=== PATIENT | male | born 1960 | race Caucasian/White ===

== ENCOUNTER → 2017-08-20 | Outpatient (CLI) | payer OTHER ==
--- NOTE | 2017-08-20 10:12 | RAD ---
TWO VIEWS CHEST: History: Dyspnea. FINDINGS: Two views of the chest show normal sized cardiomediastinal silhouette. There is no evidence of consol idation, mass, or pleural effusion. The bones are unremarkable. IMPRESSION: No evidence of acute cardiopulmonary disease. POS: [facility]
== END ==
LOC: RAD 13:20
PROVIDERS: ATTEND Internal Medicine Critical Care Medicine
DX: R06.00 Dyspnea, unspecified (principal)
CPT/HCPCS: 71046

== ENCOUNTER 2019-12-21 12:01 | Outpatient (CLI) | payer OTHER ==
--- NOTE | 2019-12-21 15:12 | ULT ---
BILATERAL RENAL ULTRASOUND: Date: 12/21/2019 HISTORY: Renal insufficiency. FINDINGS: The right kidney measures 11.2 cm in length and the left kidney measures 12.7 cm in length. No hydron ephrosis seen on either side. There is a 1.2 cm cyst in the right kidney and a 3.5 cm cyst in the lef t kidney. A 2.0 cm solid mass is seen in the upper right kidney. No hydronephrosis noted on either si de. The urinary bladder has a volume of 220 mL and is grossly unremarkable. The spleen is mildly enla rged, measuring 14.1 cm. There is a 5.0 x 4.0 mm nonshadowing echogenic focus in the left mid renal c ortex which may either represent a calculus or a vascular calcification. IMPRESSION: 1. Solid 2.0 cm right renal mass. Further evaluation with CT scan (with and without IV contrast) usi ng the renal mass protocol is recommended. 2. Bilateral renal cysts. 3. Mild splenomegaly. CODE T.
== END 2019-12-21 12:02 | disposition home or self-care (01) ==
LOC: BICULT 12:01
PROVIDERS: ATTEND Urology
DX: N28.9 Disorder of kidney and ureter, unspecified (principal); N28.1 Cyst of kidney, acquired; R16.1 Splenomegaly, not elsewhere classified; N28.89 Other specified disorders of kidney and ureter
CPT/HCPCS: 76770

== ENCOUNTER 2019-12-28 14:02 | Outpatient (CLI) | payer OTHER ==
[~2019-12-28 14:02] MED LIST: Iopamidol 370 76% 100 ML VIAL ONE
--- NOTE | 2019-12-28 15:29 | CT ---
CT abdomen without and with IV contrast HISTORY: Right renal mass. FINDINGS: The lung bases are clear. There is a 0.3 cm calculus within a nondilated calyx at the super ior pole left kidney. No stones on the right. Each renal collecting system is decompressed. No filling defects apparent within the renal collecting systems or proximal ureters on the delayed image s. The pelvis was not imaged. Projecting laterally from the superior pole of the right kidney, in the area of mass on recent sonogr am, and ill-defined, heterogeneous low density enhancing mass measures up to 1.9 cm greatest diameter on the current coronal images and correlates with the sonographic abnormality. Cysts arise from the cortex of each kidney, measuring up to 3.4 cm at the medial aspect of the midpor tion left kidney. Small hyperdense stones are present within the dependent portion of the gallbladder lumen. There is a small hiatal hernia and circumferential wall thickening of the partially visualized lower esophagus. IMPRESSION: Solid mass at the lateral margin of the superior pole right kidney. It has appeared since the 2017 ex am and is evidence of malignancy. Renal cysts. Small nonobstructing left superior pole renal calculus. Small hiatal hernia. Cholelithiasis.
== END 2019-12-28 14:03 | disposition home or self-care (01) ==
LOC: BICCT 14:02
PROVIDERS: ATTEND Urology
DX: N28.89 Other specified disorders of kidney and ureter (principal); N28.1 Cyst of kidney, acquired; N20.0 Calculus of kidney; K80.20 Calculus of gallbladder without cholecystitis without obstruction; K44.9 Diaphragmatic hernia without obstruction or gangrene
CPT/HCPCS: 74170; Q9967

== ENCOUNTER 2020-05-17 14:31 | Outpatient (CLI) | payer BC, OTHER ==
[2020-05-18 12:56] LABS: SARS-CoV-2 MS2 Positive; SARS-CoV-2 N Gene Negative; SARS-CoV-2 S Gene Negative; SARS-CoV-2 by NAA Not Detected (NotDetected); SARS-CoV-2 orf1ab Negative
== END 2020-05-17 14:32 | disposition home or self-care (01) ==
LOC: LABBT 14:31
PROVIDERS: ATTEND Urology
DX: C61 Malignant neoplasm of prostate (principal); R74.8 Abnormal levels of other serum enzymes; N20.0 Calculus of kidney; I10 Essential (primary) hypertension; E83.42 Hypomagnesemia; N28.9 Disorder of kidney and ureter, unspecified; R35.0 Frequency of micturition; N28.89 Other specified disorders of kidney and ureter
CPT/HCPCS: 87635; U0003

== ENCOUNTER 2020-05-18 14:00 | Inpatient (IN) | payer BC, OTHER ==
[2020-05-19 09:42] VITALS: BMI 31.3
[2020-05-22] MEDS ORDERED: Levofloxacin 500 mg/D5W 100 ml Premix Bag ONE (06:30)
[2020-05-22] MEDS ORDERED: Gentamicin 80 MG/2 ML VIAL ONE (06:34)
[2020-05-22] MEDS ORDERED: Methylene Blue 50 MG/10 ML AMPUL ONE (06:34)
[2020-05-22] MEDS ORDERED: Iothalamate Meglumine 60% 50 ML VIAL FS ONE (06:36)
[2020-05-22] MEDS ORDERED: HYDROmorphone 2 MG/ML VIAL ONE (06:45)
[2020-05-22] MEDS ORDERED: Fentanyl 100 MCG/2 ML VIAL ONE ×2 (06:45→07:40)
[2020-05-22] MEDS ORDERED: Phenylephrine 10 MG/ML VIAL ONE (06:46)
[2020-05-22] MEDS ORDERED: Midazolam HCl 2 mg/2 ml Vial ONE (07:11)
[2020-05-22] MEDS ORDERED: Bupivacaine 0.25% 10 ML VIAL EPIDURAL PRN (07:30)
[2020-05-22] MEDS ORDERED: Naloxone HCl 0.4 mg/ml Vial IVP PRN (07:30)
[2020-05-22] MEDS ORDERED: HYDROcodone/Acetaminophen 5/325 mg Tablet PO PRN ×2 (07:30)
[2020-05-22] MEDS ORDERED: diphenhydrAMINE 50 MG/ML VIAL IVP PRN (07:30)
[2020-05-22] MEDS ORDERED: Promethazine HCl 25 MG SUPP PR PRN (07:30)
[2020-05-22] MEDS ORDERED: Zolpidem Tartrate 5 MG TAB PO PRN (07:30)
[2020-05-22] MEDS ORDERED: Promethazine HCl 25 MG/ML VIAL IM PRN ×2 (07:30→11:16)
[2020-05-22] MEDS ORDERED: traMADol HCl 50 MG TAB PO PRN ×2 (07:30)
[2020-05-22] MEDS ORDERED: Hydrocerin (Eucerin) Cream 120 gm Jar TOP PRN (07:30)
[2020-05-22] MEDS ORDERED: Naloxone HCl 0.4 mg/ml Vial IV PRN (07:30)
[2020-05-22] MEDS ORDERED: diphenhydrAMINE 25 MG CAP PO PRN (07:30)
[2020-05-22] MEDS ORDERED: Ondansetron PF 4 MG/2 ML Vial IVP PRN (07:30)
[2020-05-22] MEDS ORDERED: diphenhydrAMINE 50 MG/ML VIAL IM PRN (07:30)
[2020-05-22] MEDS ORDERED: Bupivacaine/Epinephrine 0.25% 30 ML VIAL ONE (07:38)
[2020-05-22] MEDS ORDERED: Famotidine/PF 20 mg/2ml Vial ONE (07:38)
[2020-05-22] MEDS ORDERED: Oxybutynin 5 MG TAB PO PRN (11:08)
[2020-05-22] MEDS ORDERED: Mag-Al 1200 mg/1200 mg/30 ML UDCUP PO PRN (11:08)
[2020-05-22] MEDS ORDERED: hydrALAZINE 20 MG/ML VIAL SLOW IVP PRN ×2 (11:08)
[2020-05-22] MEDS ORDERED: HYDROmorphone 2 MG/ML VIAL SLOW IVP PRN (11:16)
[2020-05-22] MEDS ORDERED: Meperidine HCl/PF 25 MG/ML VIAL SLOW IVP PRN (11:16)
[2020-05-22] MEDS ORDERED: Promethazine HCl 25 MG/ML VIAL SLOW IVP PRN (11:16)
[2020-05-22] MEDS ORDERED: Lidocaine 1% PF 5 ML VIAL ONE (11:28)
[2020-05-22] MEDS ORDERED: PHENYLEPHRINE-NS 100 MCG/ML 10 ML SYRINGE ONE (11:28)
[2020-05-22] MEDS ORDERED: Ondansetron PF 4 MG/2 ML Vial ONE (11:28)
[2020-05-22] MEDS ORDERED: EPHEDRINE 25 MG/5 ML SYRINGE ONE (11:28)
[2020-05-22] MEDS ORDERED: Lidocaine 1.5% w/Epi 1:200K 30 ML VIAL (Epid Use) ONE (11:28)
[2020-05-22] MEDS ORDERED: PROPOFOL 200 MG/20 ML VIAL ONE (11:28)
[2020-05-22] MEDS ORDERED: Dexamethasone 20 MG/5 ML VIAL ONE (11:28)
[2020-05-22] MEDS ORDERED: Glycopyrrolate 0.2 MG/ML 5 ML SYRINGE ONE (11:28)
[2020-05-22] MEDS ORDERED: Rocuronium Bromide 10 MG/ML (10ML VIAL) ONE (11:28)
[2020-05-22] MEDS: cefTRIAXone\\ROCEPHIN 1 GM in Sodium Chloride 0.9% 100 ML IVPB SCH (12:42)
[2020-05-22] MEDS: Sodium Chloride 0.9% 1,000 ML IV SCH ×2 (12:42→20:01)
[2020-05-22 13:21] LABS: #Lymphocytes 0.5 thou/uL (1.20-3.40); #Monocytes 0.9 thou/uL (0.11-0.59); #Neutrophils 17.6 thou/uL (1.40-6.50); %Basophils 0.1 % (0.0-1.0); %Eosinophils 0.2 % (0.0-10.0); %Lymphocytes 2.6 % (21.0-51.0); %Monocytes 4.6 % (0.0-10.0); %Neutrophils 92.5 % (42.0-75.0); Hemoglobin 15.6 g/dL (14.0-18.0); Mean Corpuscular HGB CONC 34.2 g/dL (32.0-36.0); Mean Corpuscular Hemoglobin 32.6 pg (27.0-31.0); Mean Corpuscular Volume 95.4 fL (78.0-98.0); Mean Platelet Volume 7.6 fL (7.4-10.4); Platelet Count 235 thou/uL (130-400); RBC Distribution Width 12.4 % (11.5-14.5); Red Blood Cell (RBC) Count 4.79 mill/uL (4.70-6.10)
[2020-05-22 13:38] LABS: Anion Gap 14 mmol/L (10-20); BUN (Urea Nitrogen) 39 mg/dL (8.4-25.7); Calc. Creatinine Clearance 62 mL/min (70-130); Carbon Dioxide 22 mmol/L (22-29); Chloride 104 mmol/L (98-107); Estimated GFR-MDRD 35; Glucose 150 mg/dL (70-105); Potassium 4.2 mmol/L (3.5-5.1); Sodium 136 mmol/L (136-145)
[2020-05-22] MEDS: Docusate 100 MG CAP PO SCH (20:00)
[2020-05-22] MEDS: Atorvastatin Calcium 20 MG TAB PO SCH (20:01)
[2020-05-22] MEDS: fentaNYL Citrate/PF 500 MCG, Bupivacaine 10 ML in Sodium Chloride 0.9% 80 ML EPIDURAL SCH (23:52)
[2020-05-23] MEDS: Sodium Chloride 0.9% 1,000 ML IV SCH ×3 (04:23→11:20)
[2020-05-23 05:05] LABS: #Lymphocytes 0.9 thou/uL (1.20-3.40); #Monocytes 1.8 thou/uL (0.11-0.59); #Neutrophils 14.8 thou/uL (1.40-6.50); %Eosinophils 0.2 % (0.0-10.0); %Lymphocytes 5.3 % (21.0-51.0); %Monocytes 10.1 % (0.0-10.0); %Neutrophils 84.3 % (42.0-75.0); Mean Corpuscular HGB CONC 34.4 g/dL (32.0-36.0); Mean Corpuscular Hemoglobin 32.7 pg (27.0-31.0); Mean Platelet Volume 7.6 fL (7.4-10.4); Platelet Count 226 thou/uL (130-400); RBC Distribution Width 12.5 % (11.5-14.5); Red Blood Cell (RBC) Count 4.58 mill/uL (4.70-6.10); White Blood Cell (WBC) Count 17.5 thou/uL (4.8-10.8)
[2020-05-23 05:18] LABS: Anion Gap 15 mmol/L (10-20); BUN (Urea Nitrogen) 34 mg/dL (8.4-25.7); Calc. Creatinine Clearance 61 mL/min (70-130); Calcium 8.9 mg/dL (7.8-10.44); Carbon Dioxide 21 mmol/L (22-29); Chloride 102 mmol/L (98-107); Estimated GFR-MDRD 34; Glucose 127 mg/dL (70-105); Sodium 134 mmol/L (136-145)
[2020-05-23] MEDS: Docusate 100 MG CAP PO SCH ×2 (08:20→21:20)
[2020-05-23] MEDS: Lisinopril 20 MG TAB PO SCH (08:20)
[2020-05-23] MEDS: Atenolol 50 MG TAB PO SCH (08:20)
[2020-05-23] MEDS: Chlorthalidone 25 MG TAB PO SCH (08:21)
--- NOTE | 2020-05-23 08:40 | OP ---
DATE OF PROCEDURE: 05/22/2020 PREOPERATIVE DIAGNOSES: 1. Right mesophytic renal mass measuring 1.8 x 1.6 x 1.9 cm. 2. Chronic renal insufficiency. 3. History of renal lithiasis, left 3 mm nonobstructing renal calculi. 4. History of prostate cancer, in remission, status post robotic prostatectomy. 5. Mild bladder neck contracture, nonobstructing. ANESTHESIA: General/epidural. LICENSED INSURANCE AGENT: Ollie Doyle MD PROCEDURES PERFORMED: 1. Right open partial nephrectomy. 2. Cystoscopy. 3. Dilation of bladder neck with Lucho dilators. 4. 16-Israeli [place] tip Kumar catheter placement over guidewire. INTRAOPERATIVE FINDINGS: 1. Mild bladder neck contracture, nonobstructing about 14-Israeli caliber. 2. Right mesophytic renal mass as previous. INDICATIONS FOR PROCEDURE AND HISTORY: Mr. Santana is a pleasant 59-year-old male, whom I know as I treated his prostate cancer with robotic-assisted laparoscopic radical prostatectomy with PSA stable. He has no significant postprostatectomy incontinence, doing well. On surveillance for renal insufficiency, he was found to have an incidental renal mass and presents today for partial open nephrectomy. Risks and complications of the procedure were reviewed with him in detail including, but not limited to, bleeding, pain, infection, worsening renal insufficiency, possible hemodialysis, bleeding, pain, infection, possible pseudoaneurysm warranting subsequent treatment including embolization, possible total nephrectomy conversion. All questions were answered to his satisfaction and desired to proceed. Alternative options including surveillance imaging, versus laparoscopic partial nephrectomy, total nephrectomy were reviewed with him in detail and desired to proceed with open partial nephrectomy. DESCRIPTION OF PROCEDURE: After an informed consent was signed, the patient was taken to the operating room. The patient was placed in supine position, and general epidural anesthesia and an OG tube were placed by Anesthesia. At this time, a flexible cystoscopy was performed. The genital area was formally prepped and draped as I wanted to place the catheter over visual guidance. Flexible cystoscope was passed, which demonstrated he has changes consistent with radical prostatectomy. The bladder neck was patent, however, the caliber was about 14-Israeli and a 0.35 Super Stiff wire was placed into the bladder and I was able to negotiate the flexible cystoscope. However, it required some manipulation as it was tight with the cystoscope, flexible. I was able to maneuver it into the bladder, which demonstrated no evidence of bladder trabeculation or stones, and UOs were well away from the bladder neck anastomosis. At this time, with a 0.35 Super Stiff and a wire, I did dilate his bladder neck caliber to 22-Israeli with ease and subsequently a 16-Israeli [place] tip Kumar catheter was passed without difficulty and 10 mL insufflated. Subsequently, his abdomen area was formally prepped and draped. We approached the right kidney with a subcostal incision from the tip of the 11th rib to the midline. Subcutaneous fascia was opened to the limits of skin incision. A falciform ligament was identified as we entered the peritoneum and ligatured and divided. The peritoneal contents were then retracted with the colon retracted medially. We incised the white line of Toldt after appropriate Bookwalter retractors were placed. With the colon retracted from the white line of Toldt to hepatic flexure, we were able to visualize the duodenum and the vena cava. The duodenum was Kocherized allowing us to visualize the vena cava and renal hilum. The right ureter was isolated with blunt and sharp dissection and isolated using a vessel loop. Subsequently, we mobilized the kidney posteriorly and superiorly. He had significant amount of Gerota's fat, this was dissected off the renal capsule anteriorly and as such, we were able to see a subtle mesophytic renal mass in the right upper anterior kidney consistent with the CT scan. Intraoperative ultrasound was performed confirming the solid mass in this region consistent with the CT scan. We sharply dissected and isolated the renal artery and vein separately. Cold ischemia was placed with ice placed into the abdominal wound. A total of 27 minutes of cold ischemia time was utilized, in which we excised the renal mass. We first scored the area with the cautery and subsequently using back of 11-blade knife, we bluntly and sharply divided the renal mass off the main parenchyma. Margins of excision looked like there was healthy tissue at the margin of resection. No tumor was involved in the tumor bed. We then performed renorrhaphy using 2-[address]-1 needle with pledgets performed in a vertical mattress fashion. With all our sutures to repair the renorrhaphy, the kidney was taken off clamp. No significant bleeding was appreciated. We had a nice stump of Gerota's fat, that we mobilized, that allowed us to cover our renorrhaphy after FloSeal and Surgicel were placed on the renorrhaphy suture line. A #10 flat ZARI was placed in the right retroperitoneal space and a stab incision was made to bring the drain and sutured to skin using 4-0 nylon. The fascia was closed with 0 PDS in a running fashion in 2 layers and skin was closed with skin rome, and he tolerated the procedure well and transported to the recovery room in stable condition. Job ID: [id number] [facility]
--- NOTE | 2020-05-23 11:02 | PRG ---
DATE OF SERVICE: 05/23/2020 SUBJECTIVE: The patient states that he had a good night, however, difficulty sleeping with activity in the hospital. Vital signs are stable, afebrile. He had mild nausea, however, no emesis, tolerating clears. OBJECTIVE: VITAL SIGNS: Stable. I's and O's 2130 in, 2450 out, negative 460 mL. ZARI output 140 mL of serosanguinous fluid. GENERAL: The patient is in no acute distress. HEART: Regular rate. LUNGS: Clear. ABDOMEN: Soft. Bowel sounds are diminished. No rigidity. No rebound. Incision is clean, dry, and intact. EXTREMITIES: No cyanosis, clubbing, or edema. No calf tenderness appreciated. PERTINENT LABORATORY DATA: White count 17, hemoglobin stable at 15, platelets 226. Renal function; creatinine is 2.0, blood sugar 127. Pathology is pending. IMPRESSION AND PLAN: Mr. Santana is a pleasant 59-year-old male, status post right partial nephrectomy; dilation of bladder neck; history of prostate cancer, in remission; renal mass, pathology pending; history of chronic renal insufficiency. I will keep the patient on clear liquids for now as his bowel sounds are somewhat diminished. Aggressive out of bed activity, walking program noted. Anticoagulation contraindicated due to recent partial nephrectomy. Continue epidural and titrate. We will increase his IV fluids to 150 mL/h. Job ID: [id number] [facility]
[2020-05-23] MEDS: cefTRIAXone\\ROCEPHIN 1 GM in Sodium Chloride 0.9% 100 ML IVPB SCH (11:18)
[2020-05-23] MEDS: fentaNYL Citrate/PF 500 MCG, Bupivacaine 10 ML in Sodium Chloride 0.9% 80 ML EPIDURAL SCH (12:33)
[2020-05-23] MEDS: Atorvastatin Calcium 20 MG TAB PO SCH (21:20)
[2020-05-24] MEDS: Sodium Chloride 0.9% 1,000 ML IV SCH ×3 (00:23→10:46)
[2020-05-24] MEDS: fentaNYL Citrate/PF 500 MCG, Bupivacaine 10 ML in Sodium Chloride 0.9% 80 ML EPIDURAL SCH ×2 (01:10→10:06)
[2020-05-24 05:55] LABS: #Eosinphils 0.2 thou/uL (0.0-0.7); #Lymphocytes 0.9 thou/uL (1.20-3.40); #Monocytes 1.3 thou/uL (0.11-0.59); #Neutrophils 11.9 thou/uL (1.40-6.50); %Basophils 0.1 % (0.0-1.0); %Eosinophils 1.1 % (0.0-10.0); %Lymphocytes 6.2 % (21.0-51.0); %Neutrophils 83.6 % (42.0-75.0); Hemoglobin 13.5 g/dL (14.0-18.0); Mean Corpuscular HGB CONC 35.1 g/dL (32.0-36.0); Mean Corpuscular Hemoglobin 33.4 pg (27.0-31.0); Mean Corpuscular Volume 95.1 fL (78.0-98.0); Mean Platelet Volume 8.1 fL (7.4-10.4); Platelet Count 180 thou/uL (130-400); RBC Distribution Width 12.6 % (11.5-14.5); Red Blood Cell (RBC) Count 4.05 mill/uL (4.70-6.10); White Blood Cell (WBC) Count 14.3 thou/uL (4.8-10.8)
[2020-05-24 06:22] LABS: Anion Gap 13 mmol/L (10-20); BUN (Urea Nitrogen) 28 mg/dL (8.4-25.7); Calc. Creatinine Clearance 72 mL/min (70-130); Calcium 9.2 mg/dL (7.8-10.44); Carbon Dioxide 25 mmol/L (22-29); Chloride 101 mmol/L (98-107); Estimated GFR-MDRD 41; Glucose 108 mg/dL (70-105); Sodium 135 mmol/L (136-145)
[2020-05-24] MEDS: Docusate 100 MG CAP PO SCH ×2 (08:56→20:20)
[2020-05-24] MEDS: Lisinopril 20 MG TAB PO SCH (08:56)
[2020-05-24] MEDS: Atenolol 50 MG TAB PO SCH (08:56)
[2020-05-24] MEDS: Chlorthalidone 25 MG TAB PO SCH (08:56)
--- NOTE | 2020-05-24 08:59 | PRG ---
DATE OF SERVICE: 05/24/2020 SUBJECTIVE: The patient feeling well, states that he is hungry, however has not yet passed flatus. He has been tolerating clears and has been taking significant amount of oral fluids. He denies chest pain, shortness of breath, or lower extremity pain. OBJECTIVE: VITAL SIGNS: Stable at 98, 85, 16, 93, 137/94. I's and O's are 5490 in, 4325 of urine. He is positive 1 L ZARI output. ZARI output is 70 over 24 hours serosanguineous incision. ABDOMEN: Soft, nontender, nondistended. Bowel sounds are somewhat diminished, but present. The incision is clean, dry, and intact. No rigidity. No rebound. EXTREMITIES: No cyanosis, clubbing, or edema. HEART: Regular rate. LUNGS: Clear. PERTINENT LABORATORY DATA: White count 14, hemoglobin 13, platelet 180. Renal function beginning to trend towards his baseline to 1.7. Pathology reviewed demonstrating pathologic T1a renal cell carcinoma, margin negative disease and pathologic T1 renal cell carcinoma grade 2, margin negative. IMPRESSION AND PLAN: 1. Mr. Santana is a 59-year-old male, postop day #2 status post right open partial nephrectomy, dilation of bladder neck. 2. History of prostate cancer, in remission. 3. History of chronic renal insufficiency. advance his diet, with full liquids, tpatient is to be aggressively out of bed. Hep-Lock IV. Anticipate the patient will stay in-house until he is passing flatus and trial of regular diet. Titrate epidural down per Pain Service. Job ID: [id number] [facility]
[2020-05-24] MEDS ORDERED: fentaNYL Citrate/PF 500 MCG, Bupivacaine 10 ML in Sodium Chloride 0.9% 80 ML EPIDURAL SCH (10:45)
[2020-05-24] MEDS: cefTRIAXone\\ROCEPHIN 1 GM in Sodium Chloride 0.9% 100 ML IVPB SCH (12:05)
[2020-05-24] MEDS: Colchicine 0.3 MG TAB PO SCH (18:30)
[2020-05-24] MEDS: Atorvastatin Calcium 20 MG TAB PO SCH (20:20)
[2020-05-25 05:39] LABS: #Eosinphils 0.2 thou/uL (0.0-0.7); #Lymphocytes 1.1 thou/uL (1.20-3.40); #Monocytes 1.4 thou/uL (0.11-0.59); #Neutrophils 10.2 thou/uL (1.40-6.50); %Basophils 0.1 % (0.0-1.0); %Eosinophils 1.5 % (0.0-10.0); %Lymphocytes 8.4 % (21.0-51.0); %Monocytes 10.8 % (0.0-10.0); %Neutrophils 79.3 % (42.0-75.0); Hemoglobin 13.1 g/dL (14.0-18.0); Mean Corpuscular Hemoglobin 32.9 pg (27.0-31.0); Mean Corpuscular Volume 93.9 fL (78.0-98.0); Mean Platelet Volume 7.8 fL (7.4-10.4); Platelet Count 170 thou/uL (130-400); RBC Distribution Width 12.5 % (11.5-14.5); Red Blood Cell (RBC) Count 3.98 mill/uL (4.70-6.10); White Blood Cell (WBC) Count 12.9 thou/uL (4.8-10.8)
[2020-05-25 05:59] LABS: Anion Gap 13 mmol/L (10-20); BUN (Urea Nitrogen) 25 mg/dL (8.4-25.7); Calc. Creatinine Clearance 79 mL/min (70-130); Calcium 9.2 mg/dL (7.8-10.44); Carbon Dioxide 24 mmol/L (22-29); Chloride 99 mmol/L (98-107); Estimated GFR-MDRD 46; Glucose 110 mg/dL (70-105); Potassium 3.7 mmol/L (3.5-5.1); Sodium 132 mmol/L (136-145)
--- NOTE | 2020-05-25 08:16 | PRG ---
DATE OF SERVICE: 05/25/2020 SUBJECTIVE: The patient feeling well. His main complaint is flare of his gout, which I did start colchicine yesterday, renal adjusted dose. OBJECTIVE: VITAL SIGNS: Stable. He is afebrile. I's and O's; 1720 in, urine output 300. ZARI output is 65 mL. Serous pink-tinged GENERAL: The patient is in no acute distress. HEART: Regular rate. LUNGS: Clear. ABDOMEN: Incision is clean, dry, and intact. ZARI removed at bedside. Urine output is clear. EXTREMITIES: No cyanosis, clubbing, or edema. He does have some mild ankle swelling with his gout flare. There is no calf tenderness of concern. PERTINENT LABORATORY DATA: White count 12, hemoglobin stable at 13.1, and platelet 170. Renal function has returned to his baseline at 1.56. ZARI creatinine 1.5 consistent with serum not leak Pathology reviewed with the patient demonstrating pathologic T1 grade 2 renal cell carcinoma margin negative disease. Discontinue epidural. I will monitor the patient for tolerability with p.o. pain medication. The patient would like to go home today, we will monitor him this morning off his epidural. If his pain is adequately controlled, anticipate discharge this afternoon. Job ID: [id number] [facility]
[2020-05-25] MEDS: Atenolol 50 MG TAB PO SCH (08:57)
[2020-05-25] MEDS: Lisinopril 20 MG TAB PO SCH (08:57)
[2020-05-25] MEDS: Docusate 100 MG CAP PO SCH (08:58)
[2020-05-25] MEDS: Chlorthalidone 25 MG TAB PO SCH (08:58)
[2020-05-25] MEDS: cefTRIAXone\\ROCEPHIN 1 GM in Sodium Chloride 0.9% 100 ML IVPB SCH (12:14)
[2020-05-25 12:17] VITALS: BP 115/78; TEMP 98.6
[2020-05-25] MEDS: Colchicine 0.3 MG TAB PO SCH (12:20)
--- NOTE | 2020-05-25 15:10 | PQF ---
CLINICAL DOCUMENTATION CLARIFICATION FORM: Dear Dr. SEVERO MCDONALD Date: 05-25-20 Please exercise your independent, professional judgment in responding to the clarification form. Clinical indicators are provided on the bottom of this form for your review. Please check appropriate box(es): [ ] Acute Renal Failure (ARF) / Acute Kidney Injury (JUDIE) [ ] Acute on Chronic Renal Failure please specify Stage of CKD (see below) [ x ] CKD without ARF/JUDIE please specify Stage of CKD [ ] Other diagnosis [ ] Unable to determine In addition, please specify: Present on Admission (POA): [ x ] Yes [ ] No [ ] Unable to determine For continuity of documentation, please document condition throughout progress notes and discharge summary. Thank You. To be completed by CDI/Coding staff for physician review: CLINICAL INDICATORS - SIGNS / SYMPTOMS / LABS / RESULTS AND LOCATION IN MR: GFR: 05-22-20: 35 05-23-20: 34 05-24-20: 41 05-25-20: 46 CREATININE: 05-22-20: 1.98 05-23-20: 2.00 05-24-20: 1.70 05-25-20: 1.56 BUN: 05-22-20: 39 05-23-20: 34 05-24-20: 28 OP NOTE 05-22-20: CHRONIC RENAL INSUFFICIENCY RISK FACTORS / RESULTS AND LOCATION IN MR: PN DR. MCDONALD 05-24-20: HX OF CHRONIC RENAL INSUFFICIENCY TREATMENTS / RESULTS AND LOCATION IN MR: MAR: 05-23-20: NS IVF MONITORING LABS 05-22-20 TO 05-25-20 National Kid[employer] Guidelines for CKD Staging Stage I Kidney damage with normal or increased GFR GFR > 90 Stage II Kidney damage with mildly decreased GFR GFR 60-89 Stage III Kidney damage with moderately decreased GFR GFR 30-59 Stage IV Kidney damage with severely decreased GFR GFR 16-29 Stage V Kidney failure GFR<15 ESRD End Stage Renal Disease On dialysis Acute Renal Failure/Acute Kidney Failure defined as: Increases in SCr by (>) 0.3 mg/dl within 48 hours OR- Increases in SCr by (>) 1.5 times baseline, known or presumed to have occurred within the prior 7 days OR- Urine volume < 0.5 ml/kg/hour for 6 hours (KDIGO supplement 2012 for RIFLE/JULIETA criteria) CDS Signature: Dorene Lange Phone #: [phone] Date: 05-25-20 This is a permanent part of the Medical Record [facility]
--- NOTE | 2020-05-26 01:02 | DIS ---
DATE OF ADMISSION: 05/22/2020 DATE OF DISCHARGE: 05/25/2020 ADMITTING DIAGNOSIS: Right renal mass. DISCHARGE DIAGNOSIS: Pathologic T1 renal cell carcinoma, margin-negative disease. PROCEDURE: Right open partial nephrectomy, dilation of bladder neck. BRIEF HOSPITAL COURSE: Mr. Santana is a pleasant 59-year-old male, well known to me, with history of prostate cancer, in remission, status post robotic prostatectomy. The patient presented subsequently on followup with renal insufficiency, renal ultrasound was obtained demonstrating no evidence of hydronephrosis, however, incidental renal mass concerning for occult renal cell carcinoma. He was fully informed regarding differential diagnosis, treatment options outlined, and desired to proceed with open right partial nephrectomy. He underwent surgery uneventfully, he was managed with epidural for pain management. His diet was advanced, which he has been tolerating, had bowel movements, passing flatus. His epidural was discontinued this morning and his pain is well controlled with oral pain medications. He did have a flare of his gout, I did provide a renal dose- adjusted colchicine, he cannot take NSAIDs due to history of baseline renal insufficiency, recent partial nephrectomy. His allopurinol was on hold during the hospital due to renal surgery and renal insufficiency. As his kidney function has now normalized to his baseline, his allopurinol is to be continued as an outpatient. DISCHARGE MEDICATIONS: From urologic perspective includes: 1. Greene 5/325, #30. 2. Colace p.r.n. His ZARI output demonstrated ZARI creatinine consistent with serum, and therefore was removed on day of discharge. DISCHARGE INSTRUCTIONS: No heavy lifting or strenuous activity over 10 pounds, he is discharged with indwelling Kumar catheter as he underwent concomitant dilation of his bladder neck. He will return to clinic next Friday for Kumar catheter removal. followup in chart, primary care appointment within the next few days advised. I did conference with Dr. Franklin, who will contact him to proceed with treatment of steroids due to acute gout flare. CONDITION: Stable. Job ID: [id number] [facility] [place]
--- NOTE | 2020-05-26 11:21 | PQF ---
CLINICAL DOCUMENTATION CLARIFICATION FORM: Dear : Cathie Phillips DO Date / Time: 05/26/2020 Please exercise your independent, professional judgment in responding to the clarification form. Clinical indicators are provided on the bottom of this form for your review Please check appropriate box(es): [ ] Hyponatremia please specify etiology, if known [ ] Hyponatremia due to SIADH (Syndrome of Inappropriate Secretion of Antidiuretic Hormone) [ x] Other diagnosis pt was drinking po water __(Please specify if any) [ ] Unable to determine In addition, please specify: Present on Admission (POA): [ ] Yes [ ] No [ ] Unable to determine Physician Signature: Date/Time: For continuity of documentation, please document condition throughout progress notes and discharge summary. Thank You. To be completed by CDI/Coding staff for physician review: Present Clinical Indicators - Signs / Symptoms / Labs Results and Location in Medical Record [x] Na level Na-134, 135, 132 on Laboratory 05/23, 05/24, 05/25 [ ] Decreased LOC, malaise, GAYLE, [ ] Coma / Seizures [x] He hadmild nausea Progress notes on 05/23 Present Risk Factors Results and Location in Medical Record [x] Chronic renal insufficency Progress notes on 05/23 [ ] Polydipsia [ ] Dehydration [ ] Lung cancer [ ] Diabetes Insipidus [ ] Diuretics Present Treatments Results and Location in Medical Record [x] Sodium chloride0.9% IV 1,000ml 125mls/hr Medication on 05/22, 05/23 [x] Sodium chloride0.9% IV 1,000ml 150mls/hr Medication on 05/23, 05/24 [ ] Fluid restriction [ ] CDS/Director Of Exhibit Development Signature: AAS Phone #: Date/Time: 05/26/2020 This is a permanent part of the Medical Record [facility]
== END 2020-05-25 12:40 | disposition home or self-care (01) | DRG 658 ==
LOC: SURG A 05-22 06:07
PROVIDERS: ADMIT Urology; ATTEND Urology
PROC: 0TB00ZZ Excision of Right Kidney, Open Approach (ICD-10-PCS; principal; 2020-05-22)
PROC: 0T7C8ZZ Dilation of Bladder Neck, Via Natural or Artificial Opening Endoscopic (ICD-10-PCS; 2020-05-22)
DX: C64.1 Malignant neoplasm of right kidney, except renal pelvis (principal); N18.9 Chronic kidney disease, unspecified; M10.9 Gout, unspecified; E78.5 Hyperlipidemia, unspecified; N32.0 Bladder-neck obstruction; I12.9 Hypertensive chronic kidney disease with stage 1 through stage 4 chronic kidney disease, or unspecified chronic kidney disease; Z90.79 Acquired absence of other genital organ(s)
CPT/HCPCS: 36415; 71046; 80048; 81001; 82570; 85025; 85027; 85610; 85730; 86850; 86900; 86901; 87086; 88307; 93005; J0690; J0696; J1100; J1170; J1580; J1956; J2001; J2250; J2370; J2405; J2704; J3010; J3490; Q9968; S0028

== ENCOUNTER 2020-05-19 06:57 | Outpatient (CLI) | payer BC, OTHER ==
[2020-05-19 14:33] LABS: Bilirubin Neg (Negative); Blood, Urine Negative (Negative); Clarity Clear (Clear); Glucose, Urine (Dipstick) Normal (Negative); Ketone, Urine Negative (Negative); Leukocyte Negative (Negative); Nitrite Negative (Negative); Protein, Urine (Dipstick) Negative (Neg-Trace); Specific Gravity, Urine 1.015 (1.002-1.036); Urobilinogen Normal mg/dL (Less than 2)
[2020-05-19 14:38] LABS: Hemoglobin 16.7 g/dL (14.0-18.0); Mean Corpuscular HGB CONC 33.7 G/DL (32.0-36.0); Mean Corpuscular Hemoglobin 31.6 PG (27.0-33.0); Mean Corpuscular Volume 93.6 fl (80.0-100.0); Platelet Count 271 10x3/uL (130-400); RBC Distribution Width 12.5 % (11.5-14.5); Red Blood Cell (RBC) Count 5.29 10x6/uL (4.40-5.80); White Blood Cell (WBC) Count 13.9 10x3/uL (4.5-11.0)
--- NOTE | 2020-05-19 14:50 | RAD ---
PA AND LATERAL VIEWS OF THE CHEST: 05/19/20 HISTORY: Preoperative evaluation. FINDINGS: The heart size is normal. The lungs are well expanded without focal areas of consolidation, pneumotho races, or pleural effusions. No acute osseous abnormalities are seen. IMPRESSION: No radiographic evidence of acute cardiopulmonary process. POS: [facility]
[2020-05-19 14:53] LABS: Anion Gap 21 mmol/L (10-20); BUN (Urea Nitrogen) 28 mg/dL (8.4-25.7); Calc. Creatinine Clearance 0 mL/min (70-130); Calcium 10.6 mg/dL (7.8-10.44); Carbon Dioxide 22 mmol/L (22-29); Chloride 104 mmol/L (98-107); Estimated GFR-MDRD 44; Glucose 63 mg/dL (70-105); Potassium 4.3 mmol/L (3.5-5.1); Sodium 143 mmol/L (136-145)
[2020-05-19 16:18] LABS: RBC/HPF 0-3 HPF (0-3); WBC/HPF 0-3 HPF (0-3)
[2020-05-19 16:24] LABS: Bacteria/HPF Rare-Few HPF (None Seen); Squamous Epithelial 0-3 HPF (0-3)
[2020-05-19 16:56] LABS: PTT 26.3 sec (22.0-33.0); Prothrombin Time 10.9 sec (9.5-12.1)
--- NOTE | 2020-05-24 19:25 | EKG ---
Test Reason : Blood Pressure : / mmHG Vent. Rate : 064 BPM Atrial Rate : 064 BPM P-R Int : 188 ms QRS Dur : 108 ms QT Int : 404 ms P-R-T Axes : 046 064 050 degrees QTc Int : 416 ms Normal sinus rhythm Incomplete right bundle branch block Borderline ECG No previous ECGs available Confirmed by DR. Loan GERBER MD ([id number]) on 05/24/2020 7:24:28 PM Referred By: ADRIANA Confirmed By:DR. Loan GERBER MD
== END 2020-05-19 06:58 | disposition home or self-care (01) ==
LOC: LABBT 06:57
PROVIDERS: ATTEND Urology
DX: Z01.818 Encounter for other preprocedural examination (principal); C61 Malignant neoplasm of prostate; R74.8 Abnormal levels of other serum enzymes; R35.0 Frequency of micturition; N28.9 Disorder of kidney and ureter, unspecified; N28.89 Other specified disorders of kidney and ureter; N20.0 Calculus of kidney; I10 Essential (primary) hypertension; Z87.442 Personal history of urinary calculi
CPT/HCPCS: 71046; 80048; 81001; 85027; 85610; 85730; 86850; 86900; 86901; 87086; 93005; 93010

== ENCOUNTER 2020-09-27 13:47 | Outpatient (CLI) | payer BC, OTHER | END 2020-09-27 13:48 | disposition home or self-care (01) | LOC: BICCT 13:47 | PROVIDERS: ATTEND Urology | DX: C64.1 Malignant neoplasm of right kidney, except renal pelvis (principal); C61 Malignant neoplasm of prostate; R91.1 Solitary pulmonary nodule; N28.9 Disorder of kidney and ureter, unspecified; N20.0 Calculus of kidney; K44.9 Diaphragmatic hernia without obstruction or gangrene; K80.20 Calculus of gallbladder without cholecystitis without obstruction; Z98.890 Other specified postprocedural states | CPT/HCPCS: 71250; 74018 ==

== ENCOUNTER 2022-04-02 13:33 | Outpatient (CLI) | payer BC, OTHER | END 2022-04-02 13:34 | disposition home or self-care (01) | LOC: BICULT 13:33 | PROVIDERS: ATTEND Urology | DX: C64.1 Malignant neoplasm of right kidney, except renal pelvis (principal); N20.0 Calculus of kidney; N28.9 Disorder of kidney and ureter, unspecified; R91.8 Other nonspecific abnormal finding of lung field; K80.20 Calculus of gallbladder without cholecystitis without obstruction; K44.9 Diaphragmatic hernia without obstruction or gangrene; N28.1 Cyst of kidney, acquired; Z98.890 Other specified postprocedural states | CPT/HCPCS: 71250; 74018; 76770 ==

== ENCOUNTER 2022-10-20 12:19 | Inpatient (IN) | payer BC, OTHER ==
[~2022-10-20 12:19] MED LIST changes: -Iopamidol 370 76% 100 ML VIAL ONE; +Iopamidol-370 76% 500 ML MDV (1 ML CHARGE) ONE
[2022-10-20 13:18] LABS: Hemoglobin 16.1 g/dL (14.0-18.0); Mean Corpuscular HGB CONC 35.9 g/dL (32.0-36.0); Mean Corpuscular Hemoglobin 33.8 pg (27.0-31.0); Mean Corpuscular Volume 93.9 fl (78.0-98.0); Mean Platelet Volume 9.6 fL (7.4-10.4); Platelet Count 80 10x3/uL (130-400); RBC Distribution Width 13.2 % (11.5-14.5); Red Blood Cell (RBC) Count 4.77 mill/uL (4.70-6.10); White Blood Cell (WBC) Count 5.5 10x3/uL (4.8-10.8)
[2022-10-20 13:33] LABS: ALT (SGPT) 49 U/L (8-55); AST (SGOT) 41 U/L (5-34); Albumin 3.6 g/dL (3.4-4.8); Alkaline Phosphatase 60 U/L (40-110); Anion Gap 13 mmol/L (10-20); BUN (Urea Nitrogen) 29 mg/dL (8.4-25.7); CK (CPK) 321 U/L (30-200); Calc. Creatinine Clearance 0 mL/min (70-130); Calcium 8.8 mg/dL (7.8-10.44); Carbon Dioxide 21 mmol/L (23-31); Chloride 98 mmol/L (98-107); Estimated GFR 39; Globulin 2.2 g/dL (2.4-3.5); Glucose 125 mg/dL (80-115); Lipase 49 U/L (8-78); Potassium 3.3 mmol/L (3.5-5.1); Protein, Total 5.8 g/dL (5.8-8.1); Sodium 129 mmol/L (136-145)
[2022-10-20 13:38] LABS: Band 24 % (5-11); Lymphocytes 9 % (21-51); MDiff Complete? YES; Monocytes 6 % (0-10); Neutrophil 58 % (42-75); Platelet Morphology Comment Appears Decreased; RBC Morphology Normal; Reactive Lymphocytes 3 % (0-10)
[2022-10-20] MEDS ORDERED: Aspirin Chewable 81 MG TAB ONE (15:10)
[2022-10-20 15:59] LABS: Bacteria/HPF None Seen HPF (None Seen); Bilirubin Negative (Negative); Blood, Urine 1+ (Negative); Clarity Clear (Clear); Glucose, Urine (Dipstick) Normal (Negative); Ketone, Urine Negative (Negative); Leukocyte Negative Leu/uL (Negative); Nitrite Negative (Negative); Protein, Urine (Dipstick) Negative (Neg-Trace); RBC/HPF 0-3 HPF (0-3); Specific Gravity, Urine 1.032 (1.002-1.036); Squamous Epithelial None Seen HPF (0-3); Urobilinogen Normal mg/dL (Less than 2); WBC/HPF 0-3 HPF (0-3); pH, Urine 5.5 (5.0-9.0)
[2022-10-20] MEDS ORDERED: Electrolyte Replacement Protocol FS SCH (16:00)
[2022-10-20] MEDS ORDERED: Potassium Chloride 20 MEQ TAB PO SCH (16:00)
[2022-10-20] MEDS ORDERED: NS 0.9% w/ 20 MEQ KCL 1,000 ML/1,000 ML BAG IV SCH (16:00)
[2022-10-20 16:31] LABS: Magnesium 1.7 mg/dL (1.6-2.6)
[2022-10-20 16:43] LABS: Troponin I Less than 0.010 ng/mL (< 0.028)
[2022-10-20 18:25] VITALS: BMI 17.5
[2022-10-20 19:16] LABS: Troponin I Less than 0.010 ng/mL (< 0.028)
[2022-10-20 23:24] LABS: Potassium 3.7 mmol/L (3.5-5.1)
[2022-10-21 05:33] LABS: Anion Gap 11 mmol/L (10-20); BUN (Urea Nitrogen) 27 mg/dL (8.4-25.7); Calc. Creatinine Clearance 66 mL/min (70-130); Calcium 8.5 mg/dL (7.8-10.44); Carbon Dioxide 22 mmol/L (23-31); Chloride 102 mmol/L (98-107); Estimated GFR 44; Glucose 114 mg/dL (80-115); Magnesium 1.8 mg/dL (1.6-2.6); Potassium 3.6 mmol/L (3.5-5.1); Sodium 131 mmol/L (136-145)
[2022-10-21 06:03] LABS: Hemoglobin 14.9 g/dL (14.0-18.0); Lymphocytes 9 % (21-51); MDiff Complete? YES; Mean Corpuscular Hemoglobin 31.7 pg (27.0-31.0); Mean Corpuscular Volume 96.1 fl (78.0-98.0); Mean Platelet Volume 9.5 fL (7.4-10.4); Monocytes 16 % (0-10); Neutrophil 74 % (42-75); Platelet Count 81 10x3/uL (130-400); Platelet Morphology Comment Appears Decreased; RBC Distribution Width 13.2 % (11.5-14.5); RBC Morphology Normal; Reactive Lymphocytes 1 % (0-10); Red Blood Cell (RBC) Count 4.69 mill/uL (4.70-6.10); White Blood Cell (WBC) Count 4.2 10x3/uL (4.8-10.8)
[2022-10-21] MEDS ORDERED: Magnesium 2 GM/50 ML(in water) 2 GM in Premix Bag 1 BAG IVPB SCH (08:00)
[2022-10-21] MEDS: Carvedilol 3.125 MG TAB PO SCH (16:20)
[2022-10-21] MEDS: Acetaminophen 325 MG TAB PO PRN (16:21)
[2022-10-21] MEDS: Sodium Chloride 0.9% 1,000 ML IV SCH (16:21)
[2022-10-21] MEDS ORDERED: cefTRIAXone\\ROCEPHIN 1 GM in Sodium Chloride 0.9% 100 ML IVPB SCH (18:15)
[2022-10-21] MEDS: Doxycycline 100 MG CAP PO SCH (19:52)
[2022-10-21] MEDS: Loratadine 10 MG TAB PO SCH (19:52)
[2022-10-21] MEDS: Atorvastatin Calcium 20 MG TAB PO SCH (19:52)
[2022-10-22] MEDS: Sodium Chloride 0.9% 1,000 ML IV SCH (01:44)
[2022-10-22] MEDS: Acetaminophen 325 MG TAB PO PRN ×3 (03:50→21:58)
[2022-10-22 06:14] LABS: Anion Gap 9 mmol/L (10-20); BUN (Urea Nitrogen) 20 mg/dL (8.4-25.7); Calc. Creatinine Clearance 78 mL/min (70-130); Calcium 8.9 mg/dL (7.8-10.44); Carbon Dioxide 25 mmol/L (23-31); Cardiac Risk 4.8 (Less than 4.5); Chloride 99 mmol/L (98-107); Cholesterol 76 mg/dl (< 200 Desired); Estimated GFR 53; Glucose 114 mg/dL (80-115); HDL Cholesterol 16 mg/dL (>60 Neg Risk); LDL Cholesterol, Calculated 36 mg/dL; Sodium 130 mmol/L (136-145); Triglycerides 122 mg/dL (Less than 150)
[2022-10-22 06:20] LABS: Band 36 % (5-11); Hemoglobin 15.7 g/dL (14.0-18.0); Lymphocytes 7 % (21-51); MDiff Complete? YES; Mean Corpuscular HGB CONC 35.7 g/dL (32.0-36.0); Mean Corpuscular Hemoglobin 33.7 pg (27.0-31.0); Mean Corpuscular Volume 94.4 fl (78.0-98.0); Mean Platelet Volume 10.3 fL (7.4-10.4); Metamyelocyte 1 % (0-0); Monocytes 12 % (0-10); Neutrophil 34 % (42-75); Platelet Count 68 10x3/uL (130-400); Platelet Morphology Comment Appears Decreased; RBC Distribution Width 13.2 % (11.5-14.5); RBC Morphology Normal; Reactive Lymphocytes 10 % (0-10); Red Blood Cell (RBC) Count 4.65 mill/uL (4.70-6.10); White Blood Cell (WBC) Count 5.8 10x3/uL (4.8-10.8)
[2022-10-22] MEDS ORDERED: Potassium Chloride 20 MEQ TAB PO SCH ×2 (08:00→12:00)
[2022-10-22] MEDS: Carvedilol 3.125 MG TAB PO SCH ×2 (08:12→17:04)
[2022-10-22] MEDS: Doxycycline 100 MG CAP PO SCH ×2 (08:12→20:53)
[2022-10-22] MEDS: Saccharomyces boulardii 250 MG CAP PO SCH (14:05)
[2022-10-22 17:46] LABS: Potassium 3.8 mmol/L (3.5-5.1)
[2022-10-22 17:56] LABS: SARS-CoV-2 NAA Rapid Test Not Detected (NotDetected)
[2022-10-22] MEDS ORDERED: cefTRIAXone\\ROCEPHIN 1 GM in Sodium Chloride 0.9% 100 ML IVPB SCH (18:00)
[2022-10-22] MEDS: Ascorbic Acid 500 mg Chewable Tablet PO SCH (20:51)
[2022-10-22] MEDS: guaiFENesin ER 600 MG TAB PO SCH (20:52)
[2022-10-22] MEDS: Loratadine 10 MG TAB PO SCH (20:52)
[2022-10-22] MEDS: Zinc Sulfate 220 MG CAP PO SCH (20:52)
[2022-10-22] MEDS: Atorvastatin Calcium 20 MG TAB PO SCH (20:52)
[2022-10-22] MEDS ORDERED: Piperacillin/Tazobactam 3.375 GM in Sodium Chloride 0.9% 100 ML IVPB SCH (23:30)
[2022-10-23 05:14] LABS: Anion Gap 11 mmol/L (10-20); BUN (Urea Nitrogen) 22 mg/dL (8.4-25.7); Calc. Creatinine Clearance 76 mL/min (70-130); Calcium 9.6 mg/dL (7.8-10.44); Carbon Dioxide 27 mmol/L (23-31); Chloride 97 mmol/L (98-107); Estimated GFR 52; Glucose 106 mg/dL (80-115); Potassium 3.9 mmol/L (3.5-5.1); Sodium 131 mmol/L (136-145)
[2022-10-23 05:23] LABS: ALT (SGPT) 61 U/L (8-55); AST (SGOT) 49 U/L (5-34); Albumin 3.4 g/dL (3.4-4.8); Alkaline Phosphatase 63 U/L (40-110); Bilirubin, Direct 0.6 mg/dL (0.1-0.3); Bilirubin, Total 1.4 mg/dL (0.2-1.2)
[2022-10-23 05:26] LABS: Band 13 % (5-11); Lymphocytes 14 % (21-51); MDiff Complete? YES; Mean Corpuscular HGB CONC 35.2 g/dL (32.0-36.0); Mean Corpuscular Hemoglobin 33.5 pg (27.0-31.0); Mean Corpuscular Volume 95.2 fl (78.0-98.0); Mean Platelet Volume 9.8 fL (7.4-10.4); Monocytes 11 % (0-10); Neutrophil 62 % (42-75); Platelet Count 74 10x3/uL (130-400); Platelet Morphology Comment Appears Decreased; RBC Distribution Width 13.3 % (11.5-14.5); RBC Morphology Normal; Red Blood Cell (RBC) Count 4.79 mill/uL (4.70-6.10); White Blood Cell (WBC) Count 7.5 10x3/uL (4.8-10.8)
[2022-10-23] MEDS: Piperacillin/Tazobactam 3.375 GM in Sodium Chloride 0.9% 100 ML IVPB SCH ×3 (05:39→21:03)
[2022-10-23] MEDS ORDERED: NS 0.9% w/ 20 MEQ KCL 1,000 ML IV SCH (08:00)
[2022-10-23] MEDS: Doxycycline 100 MG CAP PO SCH ×2 (09:06→21:04)
[2022-10-23] MEDS: guaiFENesin ER 600 MG TAB PO SCH ×2 (09:07→21:04)
[2022-10-23] MEDS: Carvedilol 3.125 MG TAB PO SCH ×2 (09:07→17:02)
[2022-10-23] MEDS: Multivit, Therapeutic 1 TAB PO SCH (09:07)
[2022-10-23] MEDS ORDERED: Iopamidol-370 76% 500 ML MDV (1 ML CHARGE) ONE (09:54)
[2022-10-23 12:26] LABS: Legionella Urinary Ag Negative (Negative); Strep pneumo Urine Ag NEGATIVE (NEGATIVE)
[2022-10-23] MEDS: Saccharomyces boulardii 250 MG CAP PO SCH (13:07)
[2022-10-23] MEDS: Zinc Sulfate 220 MG CAP PO SCH (21:04)
[2022-10-23] MEDS: Ascorbic Acid 500 mg Chewable Tablet PO SCH (21:04)
[2022-10-23] MEDS: Atorvastatin Calcium 20 MG TAB PO SCH (21:04)
[2022-10-23] MEDS: Loratadine 10 MG TAB PO SCH (21:04)
[2022-10-24] MEDS: Piperacillin/Tazobactam 3.375 GM in Sodium Chloride 0.9% 100 ML IVPB SCH ×2 (03:19→11:59)
[2022-10-24 06:45] LABS: #Eosinphils 0.2 thou/uL (0.0-0.7); #Lymphocytes 1.2 thou/uL (1.20-3.40); #Monocytes 0.8 thou/uL (0.11-0.59); #Neutrophils 4.5 thou/uL (1.40-6.50); %Basophils 0.5 % (0.0-1.0); %Eosinophils 2.6 % (0.0-10.0); %Lymphocytes 17.8 % (21.0-51.0); %Monocytes 12.4 % (0.0-10.0); %Neutrophils 66.8 % (42.0-75.0); Hemoglobin 15.7 g/dL (14.0-18.0); Mean Corpuscular HGB CONC 36.3 g/dL (32.0-36.0); Mean Corpuscular Hemoglobin 34.5 pg (27.0-31.0); Mean Corpuscular Volume 95.1 fl (78.0-98.0); Mean Platelet Volume 9.9 fL (7.4-10.4); Platelet Count 89 10x3/uL (130-400); RBC Distribution Width 13.2 % (11.5-14.5); Red Blood Cell (RBC) Count 4.55 mill/uL (4.70-6.10); White Blood Cell (WBC) Count 6.7 10x3/uL (4.8-10.8)
[2022-10-24 07:04] LABS: Anion Gap 13 mmol/L (10-20); BUN (Urea Nitrogen) 22 mg/dL (8.4-25.7); Calc. Creatinine Clearance 88 mL/min (70-130); Calcium 9.4 mg/dL (7.8-10.44); Carbon Dioxide 24 mmol/L (23-31); Chloride 101 mmol/L (98-107); Estimated GFR 62; Glucose 100 mg/dL (80-115); Potassium 3.6 mmol/L (3.5-5.1); Sodium 134 mmol/L (136-145)
[2022-10-24] MEDS: Doxycycline 100 MG CAP PO SCH (08:21)
[2022-10-24] MEDS: Multivit, Therapeutic 1 TAB PO SCH (08:21)
[2022-10-24] MEDS: Carvedilol 3.125 MG TAB PO SCH (08:21)
[2022-10-24] MEDS: guaiFENesin ER 600 MG TAB PO SCH (08:21)
[2022-10-24 12:15] VITALS: BP 146/94; TEMP 98
== END 2022-10-24 14:37 | disposition home or self-care (01) | DRG 871 ==
LOC: ERS 12:19 → ERHOLD 15:27 → 2SW 18:21 → OBSVTOIN 10-22 09:11 → T4-A 10-23 18:44
PROVIDERS: ADMIT Family Medicine; ATTEND Internal Medicine
DX: A41.9 Sepsis, unspecified organism (principal); J18.9 Pneumonia, unspecified organism; D61.818 Other pancytopenia; E87.1 Hypo-osmolality and hyponatremia; N17.9 Acute kidney failure, unspecified; I12.9 Hypertensive chronic kidney disease with stage 1 through stage 4 chronic kidney disease, or unspecified chronic kidney disease; N18.30 Chronic kidney disease, stage 3 unspecified; E78.5 Hyperlipidemia, unspecified; M10.9 Gout, unspecified; K21.9 Gastro-esophageal reflux disease without esophagitis; K80.20 Calculus of gallbladder without cholecystitis without obstruction; R91.1 Solitary pulmonary nodule; E87.6 Hypokalemia; I95.1 Orthostatic hypotension; J01.90 Acute sinusitis, unspecified; E66.9 Obesity, unspecified; E78.00 Pure hypercholesterolemia, unspecified; E86.0 Dehydration; Z20.822 Contact with and (suspected) exposure to COVID-19; Z85.46 Personal history of malignant neoplasm of prostate; Z85.528 Personal history of other malignant neoplasm of kidney; Z68.30 Body mass index [BMI] 30.0-30.9, adult
CPT/HCPCS: 36415; 36416; 71045; 71260; 71275; 74177; 80048; 80053; 80061; 80076; 81003; 81015; 82550; 83690; 83735; 83880; 84145; 84146; 84443; 84484; 85025; 85379; 86140; 87040; 87449; 87899; 93005; 93306; 93880; 96360; 96361; 96374; 96375; G0378; J0696; J2543; J3475; J3480; J3490; J7050; Q9967

== ENCOUNTER → 2024-04-23 | Day surgery (SDC) | payer BC | LOC: RAD 11:42 | PROVIDERS: ATTEND Urology | DX: C64.1 Malignant neoplasm of right kidney, except renal pelvis (principal); N28.9 Disorder of kidney and ureter, unspecified; R91.1 Solitary pulmonary nodule; Z87.442 Personal history of urinary calculi | CPT/HCPCS: 71046 ==